=== PATIENT | female | born 1990 | race Caucasian/White ===

== ENCOUNTER → 2022-09-15 | Outpatient (CLI) | payer BC ==
--- NOTE | 2022-09-15 19:10 | US ---
EXAMINATION TYPE: US kidneys/renal and bladder DATE OF EXAM: 09/15/2022 COMPARISON: NONE CLINICAL INDICATION: Female, 31 years old with history of R31.9 HEMATURIA; recurring hematuria, no pa in EXAM MEASUREMENTS: Right Kidney: 10.2 x 4.3 x 6.0 cm Left Kidney: 11.2 x 5.5 x 5.4 cm No hydronephrosis on either side. Right Kidney: wnl Left Kidney: wnl Bladder: wnl Post Void Residual Volume: 36 mL Bilateral Jets seen: yes Normal Post Void Residual: yes Incidental note of single , 1.4 cm non-obstructive gallstone. IMPRESSION: 1. No hydronephrosis. 2. Increased postvoid bladder volume of 36 mL still falls within acceptable limits. 3. Incidental 1.4 cm gallstone.
== END | disposition home or self-care (01) ==
LOC: RADUSWWP 14:46
PROVIDERS: ATTEND Family Medicine
DX: K80.20 Calculus of gallbladder without cholecystitis without obstruction (principal); R31.9 Hematuria, unspecified
CPT/HCPCS: 76770